=== PATIENT | male | born 1975 | race Caucasian/White ===

== ENCOUNTER → 2017-05-19 | Outpatient (CLI) | payer OTHER | LOC: CARDLAB 07:32 → CARDREHAB 09:33 → CARDLAB 16:01 | DX: G47.33 Obstructive sleep apnea (adult) (pediatric) (principal); R06.83 Snoring; R09.02 Hypoxemia; Z68.26 Body mass index [BMI] 26.0-26.9, adult; R53.83 Other fatigue; G47.14 Hypersomnia due to medical condition | CPT/HCPCS: G0399 ==

== ENCOUNTER 2018-03-01 16:24 | Emergency (ER) | payer OTHER ==
[2018-03-01] MEDS ORDERED: LORAZEPAM1 M1 PO (16:33)
[2018-03-01 18:01] VITALS: BP 107/62
== END 2018-03-01 18:01 | disposition home or self-care (01) ==
LOC: ED 16:24
DX: S63.501A Unspecified sprain of right wrist, initial encounter (principal); W01.0XXA Fall on same level from slipping, tripping and stumbling without subsequent striking against object, initial encounter; Y92.009 Unspecified place in unspecified non-institutional (private) residence as the place of occurrence of the external cause

== ENCOUNTER → 2018-06-11 | Outpatient (CLI) | payer OTHER ==
[~2018-06-11] MED LIST: LORAZEPAM1 M1 PO
== END ==
LOC: RAD 14:31
DX: R05 Cough (principal); R06.09 Other forms of dyspnea

== ENCOUNTER → 2019-09-07 | Outpatient (CLI) | payer OTHER | LOC: RAD 12:29 | DX: M79.661 Pain in right lower leg (principal) ==

== ENCOUNTER → 2021-06-07 | Outpatient (CLI) | payer OTHER | LOC: RAD 15:01 | DX: S46.292A Other injury of muscle, fascia and tendon of other parts of biceps, left arm, initial encounter (principal) ==

== ENCOUNTER 2021-06-19 10:00 | Outpatient (RCR) | payer OTHER | END 2021-07-19 | disposition home or self-care (01) | LOC: PT | DX: M75.22 Bicipital tendinitis, left shoulder (principal) ==

== ENCOUNTER 2021-07-31 08:56 | Outpatient (RCR) | payer OTHER | END 2021-08-18 | disposition home or self-care (01) | LOC: PT | DX: M75.22 Bicipital tendinitis, left shoulder (principal) ==

== ENCOUNTER → 2021-10-04 | Outpatient (CLI) | payer OTHER | LOC: RAD 15:57 | DX: M75.22 Bicipital tendinitis, left shoulder (principal) ==

== ENCOUNTER → 2023-05-16 | Outpatient (CLI) | payer OTHER ==
[~2023-05-16] VITALS: Ht 175.3 cm; Wt 91.2 kg
== END ==
LOC: CARDREHAB 08:03
DX: R06.09 Other forms of dyspnea (principal)
CPT/HCPCS: A9500; J2785